=== PATIENT | male | born 1980 | race Caucasian/White ===

== ENCOUNTER 2021-01-20 15:40 | Emergency (ER) | payer MEDICAID ==
[~2021-01-20] VITALS: Ht 175.3 cm; Wt 102.1 kg
[2021-01-20 15:47] VITALS: BP 146/86
--- NOTE | 2021-01-20 15:56 | NUR ---
PT AMB TO BED 12
--- NOTE | 2021-01-20 16:03 | NUR ---
40/M BIB CAREGIVER WITH C/O RIGHT HIP X1 WEEK. PER CAREGIVER PATIENT LEFT HIS HOME LAST WEEK FOR TWO DAYS AND ARRIVED HOME WITH A "LIMP" AND C/O RIGHT LEG PAIN. PATIENT DENIES ANY RECENT INJURY OR TRAUMA, PATIENT ABLE TO AMBULATE WITHOUT ASSISTANCE, DENIES TAKING ANYTHING FOR PAIN. DENIES CP, SOB, FEVER OR CHILLS.
[2021-01-20] MEDS: KETOROLAC 60 MG/2 ML VIAL IM ONE (16:29)
[2021-01-20] MEDS ORDERED: IBUP-2213 PO (16:43)
--- NOTE | 2021-01-20 16:53 | NUR ---
Patient discharged with v/s stable. Written and verbal after care instructions ABOUT ADDUCTOR MUSCLE STRAIN given and explained. Patient alert, oriented and verbalized understanding of instructions. Ambulatory with steady gait. All questions addressed prior to discharge. ID band removed. Patient advised to follow up with PMD. Rx of IBUPROFEN given. Patient educated on indication of medication including possible reaction and side effects. Opportunity to ask questions provided and answered.
== END 2021-01-20 16:53 | disposition home or self-care (01) ==
LOC: MED 15:40
DX: R10.31 Right lower quadrant pain (principal)
CPT/HCPCS: 73502; 81002; 86592; 96372; 99284; J1885; Q0092